=== PATIENT | male | born 1950 | race American Indian/Alaskan Native ===

== ENCOUNTER 2018-01-24 09:30 | Outpatient (CLI) | payer MEDICARE ==
--- NOTE | 2018-01-24 10:46 | Ultrasound Report ---
ULTRASOUND RENAL BILATERAL HISTORY: Elevated creatinine. TECHNIQUE: transabdominal ultrasound with color Doppler interrogation. FINDINGS: Scans of the kidneys show normal renal contours. There is normal central calyceal clustering and good preservation of the cortical thickness. There is no evidence of mass or hydronephrosis. The bladder is empty. IMPRESSION: Unremarkable renal ultrasound.
== END 2018-01-24 09:31 | disposition home or self-care (01) ==
LOC: US 09:30
DX: I10 Essential (primary) hypertension (principal); R79.89 Other specified abnormal findings of blood chemistry; B20 Human immunodeficiency virus [HIV] disease; E03.9 Hypothyroidism, unspecified; R94.4 Abnormal results of kidney function studies
CPT/HCPCS: 76770